=== PATIENT | male | born 1995 | race Caucasian/White ===

== ENCOUNTER 2021-04-10 15:28 | Emergency (ER) | payer MEDICAID ==
[~2021-04-10] VITALS: Ht 175.3 cm; Wt 86.2 kg
[2021-04-10 17:14] VITALS: BP 136/86
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
[2021-04-10] MEDS ORDERED: IBUPROFEN 800 MG TAB PO ONE (17:40)
[2021-04-10] MEDS ORDERED: LIDOCAINE 5% 1 EA PATCH TP SCH ×2 (17:50→18:10)
[2021-04-10] MEDS ORDERED: LIDOCAINE 5% 1 EA PATCH TP ONE (17:50)
--- NOTE | 2021-04-10 17:57 | NUR ---
PT TAKEN TO XRAY, C-COLLAR PLACED
--- NOTE | 2021-04-10 18:07 | NUR ---
PT RETURNED TO BED [address] VIA W/C
--- NOTE | 2021-04-10 18:08 | NUR ---
PT RETURNED FROM IMAGING
--- NOTE | 2021-04-10 19:07 | NUR ---
DR. SOLORZANO HAS CLEARED PT AND STATED C-COLLAR CAN BE REMOVED
--- NOTE | 2021-04-10 19:21 | NUR ---
REPORT GIVEN TO ZAID CUMMINS
--- NOTE | 2021-04-10 19:21 | NUR ---
PT REPORT RECEIVED FROM MARIA G YOUNG AND MARIA G WONG FOR CONTINUITY OF PT CARE AT THIS TIME.
--- NOTE | 2021-04-10 19:23 | NUR ---
PT SITTING IN BED LOCKED IN LOWEST POSITION W X1 SIDERAIL UP. PT REPORTS ONGOING PAIN BUT REPORTS "I DO NOT WANT ANY MEDICATION FOR PAIN, I WANT THE XRAY DONE AND WANT TO GO HOME, I HAVE BEEN WAITING A LONG TIME." PT VSS, BREATHING EVEN AND UNLABORED. NAD NOTED, WILL CONTINUE TO MONITOR. XRAY CONTACTED, WILL COME SEE PT FOR XRAY SHORTLY.
--- NOTE | 2021-04-10 19:40 | NUR ---
PT RETURNED FROM XRAY AT THIS TIME.
[2021-04-10 20:52] VITALS: BP 129/91
--- NOTE | 2021-04-10 20:52 | NUR ---
Patient discharged with v/s stable. Written and verbal after care instructions given and explained. Patient verbalized understanding. Ambulatory with steady gait. All questions addressed prior to discharge. Advised to follow up with PMD.
[2021-04-11] MEDS ORDERED: LIDOCAINE 5% 1 EA PATCH TP SCH (09:00)
== END 2021-04-10 20:52 | disposition home or self-care (01) ==
LOC: MED 15:28
DX: S16.1XXA Strain of muscle, fascia and tendon at neck level, initial encounter (principal); M25.511 Pain in right shoulder; M54.50 Low back pain, unspecified; V89.2XXA Person injured in unspecified motor-vehicle accident, traffic, initial encounter; Y93.89 Activity, other specified; Y92.89 Other specified places as the place of occurrence of the external cause; Y99.8 Other external cause status
CPT/HCPCS: 71046; 72100; 72125; 99284